=== PATIENT | female | born 1945 ===

== ENCOUNTER → 2016-05-24 | Day surgery (SDC) | payer MEDICARE, OTHER ==
[~2016-05-24] VITALS: Ht 152.4 cm; Wt 63.5 kg
[~2016-05-24] MED LIST: Bacitracin 50000 Units Vial ONE; Betadine 10% Oint 15gm TOPIC ONE; Bupivacaine 0.25% Inj 30ml INJ ONE; Dexamethasone 4mg/ml vial ONE; Hydromorphone 0.5mg/0.5ml inj IVP PRN; Lidocaine 1% MPF 10mg/ml 5ml ONE; Midazolam 2mg/2ml Inj ONE; NS Irrig 1000ml ONE; Propofol 10mg/ml 20ml IV ONE; Sterile Water Irrig 1000ml IRRIG ONE; [UNRECOGNIZED DRUG - REMARK] PO; fentaNYL 100 mcg/2 mL IV ONE
[2016-05-24 08:16] VITALS: BP 152/81
[2016-05-24 08:37] LABS: BASOPHILS % (AUTO) 1.2 % (0.0-2.0); EOSINOPHILS % (AUTO) 3.3 % (0.0-3.0); LYMPHOCYTES % (AUTO) 31.8 % (20.0-45.0); MEAN CORPUSCULAR HEMOGLOBIN 28.8 PG (27.0-31.0); MEAN CORPUSCULAR HGB CONC 32.1 G/DL (32.0-36.0); MEAN CORPUSCULAR VOLUME 90 FL (80-99); MEAN PLATELET VOLUME 8.1 FL (6.5-10.1); MONOCYTES % (AUTO) 8.3 % (1.0-10.0); NEUTROPHILS % (AUTO) 55.5 % (45.0-75.0); PLATELET COUNT 147 K/UL (150-450); RED BLOOD COUNT 4.67 M/UL (4.20-5.40); RED CELL DISTRIBUTION WIDTH 12.9 % (11.6-14.8)
[2016-05-24 08:43] LABS: PROTHROMBIN TIME 10.2 SEC (9.30-11.50)
[2016-05-24 08:53] LABS: ANION GAP 16 (5-15); CALCIUM 8.9 mg/dL (8.6-10.2); CARBON DIOXIDE 23 mEQ/L (20-30); CHLORIDE 98 mEQ/L (98-107); CREATININE 0.8 mg/dL (0.5-0.9); GLOMERULAR FILTRATION RATE > 60 mL/min (>60); HEMOLYSIS 4; POTASSIUM 3.6 mEQ/L (3.4-4.9); SODIUM 137 mEQ/L (135-145)
--- NOTE | 2016-05-24 09:13 | Pre-Procedure Note/Attestation ---
Pre-Procedure Note/Attestation Complete Prior to Procedure Planned Procedure: right Procedure Narrative: correction of hallux limitus with cheilectomy , correction of hammer toe with arthroplasty and MPJ release 2nd right Indications for Procedure Pre-Operative Diagnosis: hallux limitus , hammer toe 2nd right foot Attestation I attest that I discussed the nature of the procedure; its benefits; risks and complications; and alternatives (and the risks and benefits of such alternatives ), prior to the procedure, with the patient (or the patient's legal site safety representative). I attest that, if there was a reasonable possibility of needing a blood transfusion, the patient (or the patient's legal site safety representative) was given the [place] [employer] standardized written summary, pursuant to the [place] Blood Safety Act ([place] Health and Safety Code # 1645, as amended). I attest that I re-evaluated the patient just prior to the surgery and that there has been no change in the patient's H&P, except as documented below: FRANC SILVESTRE DPM May 24, 2016 09:13
--- NOTE | 2016-05-24 09:29 | Anethesia Preoperative Eval ---
Anesthesia Pre-op PMH/ROS General Date of Evaluation: May 24, 2016 Time of Evaluation: 09:00 Anesthesiologist: PHILLIP ASA Score: ASA 2 Mallampati Score Class I : Soft palate, uvula, fauces, pillars visible Class II: Soft palate, uvula, fauces visible Class III: Soft palate, base of uvula visible Class IV: Only hard plate visible Mallampati Classification: Class II Surgeon: KONRAD Diagnosis: BENNIEKADERodolfo Halina Surgical Procedure: REPAIR TOE R Anesthesia History: none Family History: no anesthesia problems Allergies: Coded Allergies: LATEX (Verified Allergy, Severe, 05/24/16) hives Medications: see eMAR Past Medical History Cardiovascular: Reports: HTN Pulmonary: Denies: COPD, DEANN, asthma, other Gastrointestinal/Genitourinary: Denies: CRI, ESRD, GERD, other Endocrine: Denies: DM, hypothyroidism, other, steroids HEENT: Denies: [place] (L), [place] (R), cataract (L), cataract (R), glaucoma, other Hematology/Immune: Denies: DVT, anemia, bleeding disorder, other Musculoskeletal/Integumentary: Denies: DDD, DJD, OA, RA, edema, other Anesthesia Pre-op Phys. Exam Physician Exam Last Vital Signs Date Time Temp Pulse Resp B/P Pulse Ox O2 Delivery O2 Flow Rate FiO2 05/24/16 08:16 97.5 85 20 152/81 97 Room Air Constitutional: NAD Neurologic: CN 2-12 intact Cardiovascular: RRR Respiratory: CTA Gastrointestinal: S/NT/ND Airway Exam Mallampati Score: Class II MO: full ROM: full Teeth: intact Dentures: no lower, no upper Anesthesia Pre-op A/P Labs Hematology Test 05/24/16 08:25 White Blood Count 4.0 K/UL (4.8-10.8) L Red Blood Count 4.67 M/UL (4.20-5.40) Hemoglobin 13.4 G/DL (12.0-16.0) Hematocrit 41.8 % (37.0-47.0) Mean Corpuscular Volume 90 FL (80-99) Mean Corpuscular Hemoglobin 28.8 PG (27.0-31.0) Mean Corpuscular Hemoglobin Concent 32.1 G/DL (32.0-36.0) Red Cell Distribution Width 12.9 % (11.6-14.8) Platelet Count 147 K/UL (150-450) L Mean Platelet Volume 8.1 FL (6.5-10.1) Neutrophils (%) (Auto) 55.5 % (45.0-75.0) Lymphocytes (%) (Auto) 31.8 % (20.0-45.0) Monocytes (%) (Auto) 8.3 % (1.0-10.0) Eosinophils (%) (Auto) 3.3 % (0.0-3.0) H Basophils (%) (Auto) 1.2 % (0.0-2.0) Coagulation Test 05/24/16 08:25 Prothrombin Time 10.2 SEC (9.30-11.50) Prothromb Time International Ratio 1.0 (0.9-1.1) Activated Partial Thromboplast Time 26 SEC (23-33) Chemistry Test 05/24/16 08:25 Sodium Level 137 mEQ/L (135-145) Potassium Level 3.6 mEQ/L (3.4-4.9) Chloride Level 98 mEQ/L (98-107) Carbon Dioxide Level 23 mEQ/L (20-30) Anion Gap 16 (5-15) H Blood Urea Nitrogen 10 mg/dL (7-23) Creatinine 0.8 mg/dL (0.5-0.9) Estimat Glomerular Filtration Rate > 60 mL/min (>60) Glucose Level 108 mg/dL (74-106) H Calcium Level 8.9 mg/dL (8.6-10.2) Risk Assessment & Plan Assessment: ASA2 Plan: MAC Status Change Before Surgery: No Pre-Antibiotics Drug: ANCEF Given Within 1 Hr of Incision: Yes Time Given: 09:15 TIN FISHER M.D. May 24, 2016 09:29
--- NOTE | 2016-05-24 09:30 | Immediate Post-Op Evaluation ---
Immediate Post-Op Evalulation Immediate Post-Op Evalulation Procedure: REPAIR BEULAHE R 2ND TOE Date of Evaluation: May 24, 2016 IV Fluids: 500 Blood Products: 0 Estimated Blood Loss: 0 Urinary Output: 0 Pain Score (1-10): 1 Nausea: No Vomiting: No Patient Status: awake, patent, none Hydration Status: adequate Drug: ANCEF Given Within 1 Hr of Incision: Yes Time Given: 09:15 TIN FISHER M.D. May 24, 2016 09:30
--- NOTE | 2016-05-24 09:31 | 48 Hour Post Anesthesia Eval ---
Post Anesthesia Evaluation Procedure: REPAIR BENNIEERTOE R 2ND TOE Date of Evaluation: May 24, 2016 Airway: patent Nausea: No Vomiting: No Pain Intensity: 1 Hydration Status: adequate Cardiopulmonary Status: WNL Post-Anesthesia Complications: 0 Follow-up care needed: ready to discharge TIN FISHER M.D. May 24, 2016 09:31
--- NOTE | 2016-05-24 10:14 | Diagnostic Imaging Report ---
Indication: Pain Comparison: None Findings: 3 views of the right foot were obtained. Bones are osteopenic. There is narrowing osteophyte formation involving the first MTP joint several of the interphalangeal joints. There is no fracture. Impression: No acute injury
--- NOTE | 2016-05-24 10:43 | Brief Operative Note ---
Immediate Post Operative Note Operative Note Pre-op Diagnosis: hallux limitus , hammer toe 2nd right foot Procedure: cheilectomy right hallux and 2nd hammer toe arthroplasty Post-op Diagnosis: same Post-op Diagnosis: same as pre-op Surgeon: franc siegel Anesthesiologist: guilherme Anesthesia: MAC Specimen: yes Complications: none Condition: stable Estimated Blood Loss: none Drains: none Tourniquet time: 68 Implant(s) used?: No FRANC SIEGEL DPM May 24, 2016 10:43
[2016-05-24 12:05] VITALS: BP 136/75
--- NOTE | 2016-05-24 12:43 | Diagnostic Imaging Report ---
Indication: Pain Comparison: None Findings: 3 views of the right foot were obtained. Resection of the second proximal phalangeal head noted. There is narrowing and osteophyte formation involving the first MTP joint. Soft tissue air is noted indicative of recent surgery. Bunionectomy at the hallux noted. Impression: Postop confirmation
--- NOTE | 2016-05-25 13:18 | Pre-op HX & Phy Repo 2 SIG ---
DATE OF ADMISSION: 05/24/2016 DATE OF OPERATION: 05/24/2016 PHYSICIAN: Cash Norman D.P.M. HISTORY OF PRESENT ILLNESS: The patient is a 71-year-old female with progressively worsening pain and deformity of the right foot. The right foot pain and deformity have been progressively worsening over the past few years. She has tried numerous conservative therapy measures including padding, offloading, shoe gear modification, activity modification, as well as injection therapy but continues to experience daily pain. She reports no recent illnesses. No current nausea, vomiting, fever, chills, or shortness of breath. PAST MEDICAL HISTORY: None pertinent. PAST SURGICAL HISTORY: No pertinent findings. MEDICATIONS: Denies. ALLERGIES: No known drug allergies. SOCIAL HISTORY: Denies alcohol, tobacco, or illicit drug use. FAMILY HISTORY: No pertinent findings. PHYSICAL EXAMINATION: VITAL SIGNS: Temperature 97.7, pulse 61, respiratory rate 18, blood pressure 124/74, and O2 is 98% saturation on room air. DERMATOLOGIC: No open lesion. Mild hyperkeratosis at the medial plantar aspect of the right first metatarsophalangeal joint. Neurological sensation is intact to light touch. VASCULAR: Dorsalis pedis and posterior artery are palpable. No edema noted. MUSCULOSKELETAL: Medial bony prominence as well as decreased , first MPJ joint with pain on range of motion. Second digit on the right noticeable hammering of the second digit and overlapping on the hallux abutting from the second toe towards the midline. Muscle strength was full, 5/5 noticed bilaterally. Laboratory data has been checked, no pertinent findings. ASSESSMENT AND PLAN: This is a 71-year-old female with right foot progressively worsening pain and deformity of hallux limitus and hammertoe with contracted MPJ. The patient tried numerous conservative measurements; however, she is still experiencing daily pain. Recommended surgery as next step in management. The risks, benefits, and alternative were discussed with the patient in detail. At this time, I would like to proceed with the surgical intervention. All the patient's questions has been answered. The patient is scheduled for surgery today on 05/24/[address] Cash [address] D[address]M. DR: Shereen JOB#: [id number] CC:
--- NOTE | 2016-05-25 20:18 | Operative Note - Dictated ---
DATE OF OPERATION: 05/24/2016 FACILITY: [facility]. SURGEON: Cash Norman D.P.M. ANESTHESIOLOGIST: Dr. Vasquez. PREOPERATIVE DIAGNOSES: 1. Hallux limitus, right first metatarsophalangeal joint. 2. Hammertoe with contracted metatarsophalangeal joint, second toe, right. POSTOPERATIVE DIAGNOSES: 1. Hallux limitus, right first metatarsophalangeal joint. 2. Hammertoe with contracted metatarsophalangeal joint, second toe, right. PROCEDURES: 1. Right first MPJ cheilectomy. 2. Correction of hammertoe with arthroplasty and MPJ release, second toe. 3. Hemostasis, pneumatic ankle tourniquet at 250 mmHg. ESTIMATED BLOOD LOSS: Less than 5 mL. MATERIAL USED: 2-0 Vicryl, 3-0 Vicryl, 4-0 Vicryl, and 4-0 nylon. Injectable: 20 mL consisting of 1:1 mixture of 0.25% Marcaine plain, and 1% lidocaine plain was injected into the right foot in terms of Mary block fashion. PATHOLOGY: Bone, which was resected from the right first metatarsal head and phalanx of the second toe was sent for pathology and further study. DRESSING: Incision site was covered with Betadine ointment, Xeroform, 4x4 gauze, Kerlix, and Coban. COMPLICATIONS: None. CONDITION: Stable. Description Of Procedure: The patient was brought into the operating room and placed on the operating table with assistance in the supine position. She was well padded to avoid area of excess pressure. The patient was then given 2 g of Ancef before the start of surgery. A time-out was performed. A cotton padding and a pneumatic 18-inch tourniquet was then placed about the patient's right ankle following IV sedation. A local anesthesia block was administered to the left foot using 20 mL of 1:1 mixture of 0.25% plain Marcaine and 1% lidocaine plain. The foot was then scrubbed, prepped, and draped in the usual aseptic manner. Attention was directed to the right foot. An Esmarch bandage was utilized to exsanguinate the patient's right foot and the pneumatic ankle tourniquet was then inflated to 250 mmHg. Local anesthesia was checked by pinching the patient's skin using a rat-tooth forceps. The patient did not respond to this treatment. A skin marking pen was then used to draw the planned incision site at the dorsomedial aspect of first metatarsal joint of the right foot. The #15 blade was then used to make approximately a 5 cm incision. A new blade was used to continue sharp and blunt dissection, which was carried down to the level of the joint with care taken to retract all vital neurovascular structures. Soft tissue was then dissected to expose the head of the metatarsal. The blade was then used to perform a lateral soft tissue release from the base of the proximal phalanx. It was noticed that multiple ossification and arthritic changes as well as articulating hyaline cartilage of the joint was severely damaged and arthritic with multiplied bony exostosis noticed. With all vital structures retracted and protected, a Surgicel was then utilized to cut the medial eminence as well as the dorsal eminence and bilateral bony exostosis on the first metatarsal of the right. The bone that was resected was sent to Pathology and further study. At this time, utilizing a 3.5 K-wire fenestration of the head of the metatarsal was obtained to bring in some fibrous cartilage to the area. At this time, the room of the first metatarsal was checked and it was noticed to be inacceptable. Rasp was then utilized to smooth out all the edges and exostosis of the head of the metatarsal. Then, the right foot visual inspection showed proper alignment. Copious amount of irrigation with normal saline and bacitracin was used to flush the surgical site. The joint capsule was then closed using 2-0 Vicryl, followed by subcutaneous tissue closing with 3-0 and 4-0 Vicryl. The skin was then closed with nonabsorbable 4-0 nylon. At this time, attention was directed to the second toe where the deformity was noticed to be on the proximal interphalangeal joint. A linear incision was made over the deformity. The incision was deepened through soft tissue down to the level of the capsule. A transverse capsulotomy was done and the head of the proximal phalanx was exposed. At this time, using a sagittal saw approximately 4 mm of the head of the proximal phalanx was removed and passed off the field. Further contraction was noticed. A Percutaneous insertion of a 64 blade was inserted into the second MPJ and a dorsal capsulotomy was performed to reduce further contraction. At this time, the toe was noticed to be in good alignment. The further extensor that had been cut during the procedure from the proximal interphalangeal joint was reapproximated. Subsequently, copious amount of saline was utilized to clean the area. Deep tissue was then closed using 3-0 Vicryl. Subsequently, the skin was closed using 4-0 nonabsorbable. The surgical site was then injected with 10 mL mixture of containing 2 mL of 4 mg/mL dexamethasone and 8 mL of 0.25% Marcaine. The incision was then covered with Betadine ointment, Xeroform, Coban, and Kerlix. The tourniquet was deflated and digits were observed and found to have no sign of vascular compromise. Toes were pink and capillary refill was less than 2 seconds. The patient tolerated the surgery and anesthesia well without any complications. She was then transferred to the postoperative care unit and states no pain. The patient was reminded to take antibiotic, ibuprofen and Osprey as directed. She was also instructed to keep her legs elevated, and keep dressing clean, dry, and intact. Radiograph, crutches, and postoperative shoe were ordered. The patient was able to partially weight bear on the right heel, but was advised to minimize standing and ambulation for the next 24 hours. The patient is to be discharged once she is medically cleared by the anesthesiologist and follow up with her certainly on the next clinical visit. Cash Norman D.P.M. DR: SHADY JOB#: [id number] CC:
--- NOTE | 2016-05-28 00:14 | Cardiology Report ---
APPROVED REPORT EKG Measurement Heart [id number] Normal sinus rhythm Normal ECG
== END | disposition home or self-care (01) ==
LOC: SUR 07:44
DX: M20.5X1 Other deformities of toe(s) (acquired), right foot (principal); M20.41 Other hammer toe(s) (acquired), right foot; M24.574 Contracture, right foot; I10 Essential (primary) hypertension; Z91.040 Latex allergy status; Z87.19 Personal history of other diseases of the digestive system
CPT/HCPCS: 28270; 28285; 28289; 36415; 73630; 80048; 85025; 85610; 85730; 93005; 97161; G8978; G8979; G8980; J0690; J1100; J2250; J2405; J2704; J3010; J3490; 94003; 94150